=== PATIENT | male | born 1985 | race Caucasian/White ===

== ENCOUNTER → 2017-01-13 | Outpatient (CLI) | payer OTHER ==
--- NOTE | 2017-01-14 12:48 | DRAGON STRESS TEST REPORT ---
EXERCISE EKG TREADMILL CARDIOLITE STRESS TEST USING SPECT. DATE OF PROCEDURE: January 13, 2017 INDICATION : Chest pain RESTING EKG: Sinus rhythm, no baseline ST segment changes PROCEDURE REPORT: Baseline heart rate 87 beats per minute with blood pressure of 127/80. Patient had no significant complaints. Patient exercised on standard Pardeep protocol. Patient exercised for a total of 8 minutes and 9 seconds. Exercise was stopped because of fatigue and shortness of breath. No significant EKG changes were noted. Patient had no significant complaints during the procedure or postprocedure. Peak heart rate was 164 which is 87% of predicted maximum. Peak blood pressure was noted to be 178/55. Double product noted to be 27.6 kcal. Met level achieved was 10.1. CONCLUSIONS: Normal EKG and hemodynamic response exercise stress test at adequate double product. NUCLEAR DATA: At rest the patient was given 14.24 millicuries of technetium 99 sestamibi injected intravenously. As per protocol rest gated SPECT images were obtained. Subsequently the stress dose of 42.3 millicuries of technetium 99 sestamibi was injected intravenously at peak exercise and patient continued to exercise for additional 1-2 minutes. As per protocol stress gated images were obtained. NUCLEAR INTERPRETATION: Both raw and processed data were used for interpretation. Visual, qualitative, computer-generated quantitative data was used. There was good myocardial uptake of technetium compound. Motion artifact and soft tissue attenuations were noted. Increased visceral uptake was noted. No definitive areas of transient perfusion defect noted. No definitive areas of fixed perfusion defect or scars noted. EKG gated imaging showed LV EF at 44 %, rest and stress gated EF similar visually. T. I D. ratio was 1.04. Lung heart ratio noted to be within normal limits 0.36. No significant extracardiac and abnormal radiotracer activities were noted. RV free wall uptake was noted to be WNL. IMPRESSION: Also refer to comments under nuclear interpretation. Also test results needs to be interpreted in the context of pretest probability. 1. There is no definitive scintigraphic evidence of exercise induced myocardial ischemia at adequate double product. 2. There is no definitive scintigraphic evidence of myocardial infarction/scar. 3. EKG gated imaging shows left ventricular ejection fraction of approximately 44 %. 4. Clinical correlation requested as occasionally single vessel disease and rarely balanced ischemia could be missed. 5. Average exercise tolerance. RECOMMENDATIONS: Aggressive risk factor modification, medical therapy. Clinical correlation with echocardiogram derived ejection fraction. Consider cardiology consultation and or follow-up if clinically indicated. Jian Buck M.D., [facility] [employer] department helper, Board certified in cardiovascular diseases, Nuclear cardiology, Echocardiography Cardiac CT and cardiac MRI Ph. [phone] [facility]
== END ==
LOC: RAD 06:37
PROVIDERS: ATTEND Internal Medicine Cardiovascular Disease
DX: R07.9 Chest pain, unspecified (principal); R00.2 Palpitations
CPT/HCPCS: 93017; 78452; A9500; Q9969

== ENCOUNTER → 2017-06-23 | Outpatient (CLI) | payer OTHER ==
--- NOTE | 2017-06-23 13:44 | RADIOLOGY REPORT (SQ) ---
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 Selected additional c olor/power Doppler images recorded. All images stored to PACS. LIMITATIONS: None. FINDINGS: The thyroid gland is normal in size but has heterogeneous echogenicity and diffuse increas ed color flow worrisome for chronic thyroiditis. Right lobe thyroid is 4.6 x 1.5 x 1.6 cm in size. Left lobe thyroid 4.6 x 1.7 x 1.5 cm in size. Well-circumscribed hypoechoic solid nodules are present along the posterior aspect right mid pole and left midpole gland. These most likely represent parathyroid glands or cervical lymph nodes. These are discrete from the thyroid. On the right side, the nodule measures 1.5 x 0.7 x 0.6 cm in size. O n the left, 1.1 x 0.9 x 0.6 cm. No biopsy was performed today. IMPRESSION: Set heterogeneous thyroid with increased color flow likely from chronic thyroiditis. No discrete primary thyroid nodule is identified. Bilateral small hypoechoic solid nodules along the posterior right and left midpole thyroid gland lik peter parathyroid glands. TECHNICAL DOCUMENTATION: JOB ID: [id number] [employer]- All Rights Reserved Reading location - IP/workstation name: [facility]
== END ==
LOC: RAD 08:56
PROVIDERS: ATTEND Physician Assistant
DX: D44.0 Neoplasm of uncertain behavior of thyroid gland (principal); E04.1 Nontoxic single thyroid nodule
CPT/HCPCS: 76536

== ENCOUNTER 2018-01-24 19:44 | Emergency (ER) | payer OTHER ==
[2018-01-24] MEDS ORDERED: MORPHINE SULFATE 10 MG/ML INJ IV ONE (22:56)
[2018-01-24] MEDS ORDERED: ONDANSETRON HCL INJ/PF 4 MG/2 ML SDV IV ONE (22:56)
[2018-01-24] MEDS ORDERED: NORMAL SALINE 1000 ML 1,000 ML IV ONE (22:57)
--- NOTE | 2018-01-24 22:59 | ER Document Report ---
ED GI/ - General Chief Complaint: Abdominal Pain Stated Complaint: ABDOMINAL PAIN Time Seen by Provider: 01/24/18 22:51 Notes: Patient is a 32-year-old male that comes to the emergency department for chief complaint of sharp upper abdominal pain radiating around to his left side and back. He reports dry heaving when he tries to eat and worsening pain when he tries to eat. Symptoms started 3 days ago, pain is constant. He denies hematemesis, abnormal stools. He denies any abdominal surgeries, past medical history includes hypertension, hyperlipidemia, hyperthyroidism (medicated for all of these). He admits to heavy alcohol use, denies history of withdrawals, denies smoking or recreational drugs, denies history of pancreatitis. TRAVEL OUTSIDE OF THE [place] IN LAST 30 DAYS: No Past Medical History - General Information source: Patient - Social History Smoking Status: Never Smoker Frequency of alcohol use: None Drug Abuse: None Lives with: Family Family History: Reviewed & Not Pertinent - Medical History Medical History: Negative Surgical Hx: Negative - Immunizations Immunizations up to date: Yes Hx Diphtheria, Pertussis, Tetanus Vaccination: Yes Review of Systems - Review of Systems Constitutional: No symptoms reported EENT: No symptoms reported Cardiovascular: No symptoms reported Respiratory: No symptoms reported Gastrointestinal: See HPI Genitourinary: No symptoms reported Male Genitourinary: No symptoms reported Musculoskeletal: No symptoms reported Skin: No symptoms reported Hematologic/Lymphatic: No symptoms reported Neurological/Psychological: No symptoms reported Physical Exam - Vital signs Vitals: Temp Pulse Resp BP Pulse Ox 98.3 F 98 18 154/101 H 100 01/24/18 20:11 01/24/18 20:11 01/24/18 20:11 01/24/18 20:11 01/24/18 20:11 - Notes Notes: GENERAL: Alert, interacts well. No acute distress. HEAD: Normocephalic, atraumatic. EYES: Pupils equal, round, and reactive to light. Extraocular movements intact. ENT: Oral mucosa moist, tongue midline. NECK: Full range of motion. Supple. Trachea midline. LUNGS: Clear to auscultation bilaterally, no wheezes, rales, or rhonchi. No respiratory distress. HEART: Regular rate and rhythm. No murmur ABDOMEN: Tender in the upper abdomen generally, specifically in the left upper quadrant there is additional tenderness, no overt guarding or rigidity. non- distended. Bowel sounds present in all 4 quadrants. EXTREMITIES: Moves all 4 extremities spontaneously. No edema, normal radial and dorsalis pedis pulses bilaterally. No cyanosis. BACK: no cervical, thoracic, lumbar midline tenderness. No saddle anesthesia, normal distal neurovascular exam. NEUROLOGICAL: Alert and oriented x3. Normal speech. [cranial nerves II through XII grossly intact]. PSYCH: Normal affect, normal mood. SKIN: Warm, dry, normal turgor. No rashes or lesions noted. Course - Re-evaluation Re-evalutation: CBC, chemistry, lipase unremarkable. Vital signs unremarkable. After medications patient is calm and relaxed. He is tolerating p.o. without any difficulty. He does have upper abdominal pain on exam, specifically in the left upper quadrant, I suspect this is gastritis. Patient states he just finished a course of ibuprofen that he was taking because of an injury at work, he also drinks alcohol heavily intermittently. No black stools or hematemesis. Patient is requesting to leave. He has not provided a urinalysis yet but he does not have any CVA tenderness or lower abdominal pain. He is tolerating p.o. Provided with medications, discussed workup and recommendations, discussed return precautions in detail, patient states understanding and agreement with plan. - Vital Signs Vital signs: Temp Pulse Resp BP Pulse Ox 98.0 F 79 18 122/69 99 01/25/18 03:55 01/25/18 03:55 01/25/18 03:55 01/25/18 03:55 01/25/18 03:55 - Laboratory Result Diagrams: 01/25/18 00:23 01/25/18 00:23 Laboratory results interpreted by me: 01/25/18 01/25/18 00:23 00:23 RBC 4.20 L MCH 34.0 H ALT 74 H Discharge - Discharge Clinical Impression: Abdominal pain Qualifiers: Abdominal location: generalized Qualified Code(s): R10.84 - Generalized abdominal pain Vomiting Qualifiers: Vomiting type: unspecified Vomiting Intractability: non-intractable Nausea presence: with nausea Qualified Code(s): R11.2 - Nausea with vomiting, unspecified Condition: Stable Disposition: HOME, SELF-CARE Additional Instructions: Your laboratory workup does not show any concerning abnormalities. Your symptoms and examination indicate gastritis/esophagitis (inflammation of your upper gastrointestinal tract). Take Phenergan for nausea, take Carafate and Pepcid as prescribed to help treat this, you can take additional Rolaids, Tums, Maalox, etc. if needed. You can take Tylenol for pain. Avoid NSAIDs, alcohol, smoking, caffeine, spicy food. Start with clear fluids, progress to bland diet. Follow-up with primary care for additional evaluation and treatment including possible H. pylori testing. Return if you worsen including uncontrolled vomiting, vomiting blood, black stools, severe pain, fever for 100.4 or greater , or any other concerning or worsening symptoms. Prescriptions: Famotidine [Pepcid 20 mg Tablet] 20 mg PO BID #20 tablet Promethazine HCl [Phenergan 25 mg Tablet] 25 mg PO Q6H PRN #20 tablet PRN Reason: Sucralfate [Carafate 1 gm Tablet] 1 gm PO QID #20 tablet Referrals: MATT ABRAHAM PA-C [NURSE PRACTITIONER] - Follow up as needed
[2018-01-25 00:50] LABS: ABSOLUTE BASOPHILS # (AUTO) 0.1 10^3/uL (0.0-0.2); ABSOLUTE EOSINOPHILS # (AUTO) 0.2 10^3/uL (0.0-0.6); ABSOLUTE LYMPHOCYTES (AUTO) 2.7 10^3/uL (0.5-4.7); ABSOLUTE MONOCYTES (AUTO) 0.5 10^3/uL (0.1-1.4); ABSOLUTE NEUT (AUTO) 3.7 10^3/uL (1.7-8.2); EOSINOPHILS % (AUTO) 2.4 % (0-6); HEMATOCRIT 40.3 % (37.9-51.0); HEMOGLOBIN 14.3 g/dL (13.5-17.0); LYMPHOCYTES % (AUTO) 37.9 % (13-45); MEAN CORPUSCULAR HGB CONC 35.4 g/dL (32.0-36.0); MEAN CORPUSCULAR VOLUME 96 fl (80-97); PLATELET COUNT 259 10^3/uL (150-450); SEGMENTED NEUTROPHILS % (AUTO) 51.7 % (42-78); TOTAL CELLS COUNTED % (AUTO) 100 %; WHITE BLOOD COUNT 7.2 10^3/uL (4.0-10.5)
[2018-01-25 00:53] LABS: ALANINE AMINOTRANSFERASE 74 U/L (21-72); ALBUMIN 4.4 g/dL (3.5-5.0); ALKALINE PHOSPHATASE 72 U/L (38-126); ANION GAP 12 (5-19); ASPARTATE AMINO TRANSFERASE 38 U/L (17-59); BILIRUBIN,DIRECT 0.4 mg/dL (0.0-0.4); BILIRUBIN,TOTAL 0.8 mg/dL (0.2-1.3); BLOOD UREA NITROGEN 12 mg/dL (7-20); CALCIUM 9.7 mg/dL (8.4-10.2); CARBON DIOXIDE 23 mmol/L (22-30); CHLORIDE 104 mmol/L (98-107); GLUCOSE 87 mg/dL (75-110); LIPASE 64.2 U/L (23-300); POTASSIUM 4.2 mmol/L (3.6-5.0); SODIUM 138.7 mmol/L (137-145); TOTAL PROTEIN 7.5 g/dL (6.3-8.2)
[2018-01-25] MEDS ORDERED: FAMOTIDINE 20 MG TABLET PO ONE (01:08)
[2018-01-25] MEDS ORDERED: SUCRALFATE 1 GM TABLET PO ONE (01:08)
[2018-01-25] MEDS ORDERED: HYDROCODONE/ACETAMINOPHEN 5-325 MG (6 TAB/ER DISP) PO PRN (02:42)
[2018-01-25] MEDS ORDERED: PROMETHAZINE HCL 25 MG TABLET PO ONE (02:42)
[2018-01-25 06:14] VITALS: BP 122/69
== END 2018-01-25 02:55 | disposition home or self-care (01) ==
LOC: ER 19:44
DX: R10.84 Generalized abdominal pain (principal); R11.2 Nausea with vomiting, unspecified; R10.812 Left upper quadrant abdominal tenderness; I10 Essential (primary) hypertension; E78.5 Hyperlipidemia, unspecified; E03.9 Hypothyroidism, unspecified; Z79.899 Other long term (current) drug therapy
CPT/HCPCS: 99284; 96361; 96374; 96375; 36415; 83690; 85025; 80053; J2270; J2405